=== PATIENT | male | born 1950 | race African-American/Black ===

== ENCOUNTER → 2017-07-04 | Outpatient (CLI) | payer OTHER ==
[~2017-07-04] MED LIST: ALDACTONE25 MG PO; CLEOCIN HCL150 MG PO; COR6 PO; DIOVAN80 MG PO; ECO81 PO; GOLYTELY1 PDR PO; LAC PO; LASIX40 MG PO; LEVAQUIN750 MG PO; LIPI10 PO; THERAGRAN-M1 TA4 PO
== END | disposition home or self-care (01) ==
LOC: RD 11:18
DX: M15.0 Primary generalized (osteo)arthritis (principal)

== ENCOUNTER 2018-01-26 22:54 | Emergency (ER) | payer OTHER ==
[~2018-01-26] VITALS: Ht 182.9 cm; Wt 65.8 kg
[2018-01-26 23:02] VITALS: Ht 182.9 cm; Wt 65.8 kg
[2018-01-27 01:32] VITALS: BP 128/76
== END 2018-01-27 00:15 | disposition home or self-care (01) ==
LOC: ED 22:54
DX: S86.912A Strain of unspecified muscle(s) and tendon(s) at lower leg level, left leg, initial encounter (principal); I10 Essential (primary) hypertension; E11.9 Type 2 diabetes mellitus without complications; I50.9 Heart failure, unspecified; Y93.01 Activity, walking, marching and hiking; Y93.89 Activity, other specified; Y92.89 Other specified places as the place of occurrence of the external cause; Y99.8 Other external cause status
CPT/HCPCS: J1885

== ENCOUNTER → 2020-08-13 | Outpatient (CLI) | payer OTHER | END | disposition home or self-care (01) | LOC: RD 08:45 | DX: M17.0 Bilateral primary osteoarthritis of knee (principal); M54.5 Low back pain ==